=== PATIENT | female | born 1975 | race American Indian/Alaskan Native ===

== ENCOUNTER 2021-11-28 15:42 | Emergency (ER) | payer MEDICAID ==
[2021-11-28] MEDS ORDERED: Acetaminophen/oxyCODONE 325-5 MG Tab PO ONE (15:43)
[2021-11-28] MEDS ORDERED: Ondansetron 4 MG/2 ML SDV IVPUSH ONE (15:57)
[2021-11-28] MEDS ORDERED: HYDROmorphone 1 MG/ML Syringe IVPUSH ONE (15:57)
[2021-11-28] MEDS ORDERED: Sodium Chloride 0.9% 1,000 ML IV ONE (15:57)
[2021-11-28 16:04] VITALS: BP 96/68; PULSE 68
[2021-11-28] MEDS ORDERED: Acetaminophen/oxyCODONE 325-5 MG Tab ONE (17:15)
== END 2021-11-28 17:17 | disposition home or self-care (01) ==
LOC: DL.ED 15:42
DX: S43.102A Unspecified dislocation of left acromioclavicular joint, initial encounter (principal); E66.9 Obesity, unspecified; Z88.8 Allergy status to other drugs, medicaments and biological substances; Z68.25 Body mass index [BMI] 25.0-25.9, adult; V18.2XXA Unspecified pedal cyclist injured in noncollision transport accident in nontraffic accident, initial encounter
CPT/HCPCS: 73030; 96374; 96375; 99283; A9270; J1170; J2405; J7030